=== PATIENT | male | born 1970 | race Caucasian/White ===

== ENCOUNTER 2018-07-22 11:03 | Inpatient (IN) | payer OTHER | END 2018-07-25 19:10 | disposition home or self-care (01) | LOC: JER 11:03 → JERBED 13:47 → J4W 16:16 ==

== ENCOUNTER 2018-10-07 11:17 | Emergency (ER) | payer OTHER ==
[2018-10-07 11:28] VITALS: TEMP 98.5; BMI 31.4
[2018-10-07] MEDS ORDERED: ASPIRIN 81 MG CHEWABLE TABLETS PO ONE (14:10)
[2018-10-07] MEDS ORDERED: KETOROLAC TROMETHAMINE 30 MG/1 ML VIAL IVPUSH ONE (14:12)
--- NOTE | 2018-10-07 14:32 | PDOC ---
History of Present Illness - General Chief Complaint: Chest Pain Stated Complaint: HEADACHE/ CHEST PAIN Time Seen by Provider: 10/07/18 13:57 History Source: Patient Exam Limitations: No Limitations - History of Present Illness Initial Comments: 10/07/18 14:00 48 y/o male presents to the ED with c/o midsternal chest pain since Sunday worsened with deep breathing and movement which he describes as sharp and intermittent. Patient states history of diabetes, hypertension, dyslipidemia and was recently admitted to the hospital for similar complaints which he states was started on medication for. Patient denies palpitations, shortness of breath, nausea, weakness, or radiation of pain. Presenting Symptoms: Chest Pain Timing/Duration: reports: intermittent Severity/Quality: reports: mild, sharp Location: reports: substernal Chest Pain Radiation: reports: no radiation Activities at Onset: reports: exertion Prior Chest Pain/Cardiac Workup: reports: Echocardiography, Stress Test Nitro Today/Relief: Yes: no nitro taken today Aspirin Received prior to arrival (Core Measure): Yes: 81 mg x 1 (at home), provided by ED (2 additional baby) Associated Symptoms: Yes: Chest Pain/pressure Past History - Travel Traveled outside of the country in the last 30 days: No Close contact w/someone who was outside of country & ill: No - Past Medical History Allergies/Adverse Reactions: Allergies Allergy/AdvReac Type Severity Reaction Status Date / Time No Known Allergies Allergy Verified 07/22/18 11:40 Home Medications: Ambulatory Orders Insulin Glargine,Hum.rec.anlog [Lantus] 55 unit SQ HS 07/22/18 Aspirin Coated [Ecotrin -] 81 mg PO DAILY #30 tablet.ec 07/23/18 Atorvastatin Ca [Lipitor] 20 mg PO HS #30 tablet 07/23/18 Losartan Potassium [Cozaar -] 25 mg PO DAILY #30 tablet 07/23/18 Insulin (Levemir) [Levemir Vial] 55 units SQ HS #2 units 07/25/18 Insulin Sliding Scale [Novolog Vial Sliding Scale -] 1 vial SQ ACHS #2 units Metoprolol Succinate [Toprol XL -] 25 mg PO DAILY #30 tab.sr.24h 07/25/18 metFORMIN HCL [Metformin ER Osmotic] 1,000 mg PO BID #60 tab.er.24 07/25/18 Anemia: No Asthma: Yes Cancer: No Cardiac Disorders: No CVA: No COPD: No CHF: No Dementia: No Diabetes: Yes GI Disorders: No Disorders: No HTN: Yes Hypercholesterolemia: Yes Liver Disease: Yes (Liver enlarged 2008) Seizures: No Thyroid Disease: No - Surgical History Abdominal Surgery: No Appendectomy: No Cardiac Surgery: No Cholecystectomy: No Lung Surgery: No Neurologic Surgery: No Orthopedic Surgery: No - Suicide/Smoking/Psychosocial Hx Smoking History: Never smoked Have you smoked in the past 12 months: Yes Number of Cigarettes Smoked Daily: 1 Information on smoking cessation initiated: No 'Breaking Loose' booklet given: 07/22/18 Hx Alcohol Use: No Drug/Substance Use Hx: No Substance Use Type: None Hx Substance Use Treatment: No Patient Lives Alone: Yes Lives with/in: lives alone Cardiac Specific PMH - Complaint Specific PMHX Pacemaker: No Review of Systems - Review of Systems Able to Perform ROS?: Yes Is the patient limited Korean proficient: Yes Constitutional: No: Symptoms Reported HEENTM: No: Symptoms Reported Respiratory: No: Symptoms reported Cardiac (ROS): Yes: Chest Pain ABD/GI: No: Symptoms Reported : No: Symptoms Reported Musculoskeletal: No: Symptoms Reported Integumentary: No: Symptoms Reported Neurological: No: Symptoms reported Endocrine: No: Symptoms Reported Hematologic/Lymphatic: No: Symptoms Reported *Physical Exam - Vital Signs Last Vital Signs Temp Pulse Resp BP Pulse Ox 98.5 F 62 18 128/68 98 10/07/18 11:26 10/07/18 17:49 10/07/18 17:49 10/07/18 17:49 10/07/18 17:49 - Physical Exam General Appearance: Yes: Nourished, Appropriately Dressed. No: Apparent Distress HEENT: negative: Pale Conjunctivae Neck: positive: Normal Thyroid Respiratory/Chest: positive: Chest Tender (upper midsternal bilaterally), Lungs Clear, Normal Breath Sounds. negative: Respiratory Distress, Accessory Muscle Use Cardiovascular: positive: Regular Rhythm, Regular Rate. negative: Murmur Gastrointestinal/Abdominal: positive: Soft Extremity: positive: Normal Inspection Integumentary: positive: Normal Color, Warm, Moist Neurologic: positive: Motor Strength 5/5 (ambulatory) Heart Score/ECG Review - ECG Intrepretation Rhythm: Regular Rhythm (rate 74normal sinus rhythm. Unchanged from previous noted July 2018) ED Treatment Course - LABORATORY CBC & Chemistry Diagram: 10/07/18 14:50 10/07/18 14:50 - ADDITIONAL ORDERS Additional order review: 10/07/18 14:50 RBC 5.22 MCV 88.1 MCHC 33.7 RDW 14.3 MPV 9.3 Neutrophils % 51.7 D Lymphocytes % 36.3 D Monocytes % 8.4 Eosinophils % 3.2 Basophils % 0.4 - RADIOLOGY Radiology Studies Ordered: Category Date Time Status CHEST X-RAY PORTABLE* [RAD] Stat Radiology 10/07/18 14:08 Completed - Medications Given in the ED: ED Medications Discontinued Medications Generic Name Dose Route Start Last Admin Trade Name Freq PRN Reason Stop Dose Admin Aspirin 162 mg 10/07/18 14:10 10/07/18 14:56 Asa - PO 10/07/18 14:11 162 mg ONCE ONE Administration Ketorolac Tromethamine 30 mg 10/07/18 14:12 10/07/18 14:56 Toradol Injection - IVPUSH 10/07/18 14:13 30 mg ONCE ONE Administration Medical Decision Making - Medical Decision Making 10/07/18 14:01 Upper mid chest pain since Sunday worsened with deep breathing and movement. Exam: Reproducible upper midsternal chest tenderness at the second to fourth rib bilaterally Plan: EKG, labs, chest x-ray aspirin and Toradol IV 10/07/18 17:25 Laboratory Tests 07/22/18 07/23/18 10/07/18 12:35 05:30 14:50 WBC Hgb Hct Absolute Neuts (auto) Sodium Potassium Chloride Carbon Dioxide Anion Gap BUN Creatinine Random Glucose Calcium Magnesium Total Bilirubin AST 27 21 ALT 79 H 62 H Troponin I < 0.02 Lipase 10/07/18 10/07/18 14:50 14:50 WBC 5.2 Hgb 15.5 Hct 46.0 Absolute Neuts (auto) 2.7 Sodium 141 Potassium 4.3 Chloride 106 Carbon Dioxide 30 Anion Gap 5 L BUN 13.2 Creatinine 1.1 Random Glucose 242 H Calcium 9.4 Magnesium 1.7 L Total Bilirubin 0.4 AST 46 H ALT 102 H Troponin I Lipase 133 Pt states feeling better with toradol.Chest x-ray shows no acute chest pathology. Patient recommended to follow up with Dr. Leyva referred marble ceiling installer from july's admission/workup. *DC/Admit/Observation/Transfer Diagnosis at time of Disposition: Chest pain - Discharge Dispostion Disposition: HOME - Referrals Referrals: Brian Masters MD [Staff Physician] - - Patient Instructions Printed Discharge Instructions: DI for Atypical Chest Pain Additional Instructions: At this time I do recommend follow-up with your PCP and marble ceiling installer. May take Motrin 600 mg every 8 hours for discomfort. - Post Discharge Activity
[2018-10-07] MEDS ORDERED: ASPIRIN 81 MG CHEWABLE TABLETS ONE (14:51)
[2018-10-07] MEDS ORDERED: KETOROLAC TROMETHAMINE 30 MG/1 ML VIAL ONE (14:52)
[2018-10-07 15:16] LABS: BASO % 0.4 % (0-2.0); EOS % 3.2 % (0-4.5); HEMOGLOBIN 15.5 GM/dL (11.7-16.9); LYMPH % 36.3 % (8-40); MCH 29.7 pg (25.7-33.7); MCHC 33.7 g/dl (32.0-35.9); MEAN CELL VOLUME 88.1 fl (80-96); MEAN PLT VOLUME 9.3 fl (7.5-11.1); MONO % 8.4 % (3.8-10.2); NEUT % 51.7 % (42.8-82.8); PLATELET COUNT 171 K/MM3 (134-434); RBC 5.22 M/mm3 (4.00-5.60); RDW 14.3 % (11.9-15.9); WHITE BLOOD COUNT 5.2 K/mm3 (4.0-10.0)
--- NOTE | 2018-10-07 15:24 | EKG ---
Test Reason : Blood Pressure : / mmHG Vent. Rate : 074 BPM Atrial Rate : 074 BPM P-R Int : 142 ms QRS Dur : 104 ms QT Int : 386 ms P-R-T Axes : 033 -53 003 degrees QTc Int : 428 ms NORMAL SINUS RHYTHM INCOMPLETE RIGHT BUNDLE BRANCH BLOCK LEFT ANTERIOR FASCICULAR BLOCK ANTERIOR INFARCT (CITED ON OR BEFORE 22-JUL-2018) ABNORMAL ECG WHEN COMPARED WITH ECG OF 22-JUL-2018 14:19, NO SIGNIFICANT CHANGE WAS FOUND Confirmed by YAYA STARR MD ([id number]) on 10/07/2018 3:24:12 PM Referred By: Confirmed By:YAYA STARR MD
[2018-10-07 15:38] LABS: ALBUMIN 3.5 g/dl (3.4-5.0); BILIRUBIN,TOTAL 0.4 mg/dL (0.2-1); BLOOD UREA NITROGEN 13.2 mg/dL (7-18); CALCIUM 9.4 mg/dL (8.5-10.1); CREATININE 1.1 mg/dL (0.55-1.3); MAGNESIUM 1.7 mg/dL (1.8-2.4); POTASSIUM 4.3 mmol/L (3.5-5.1); TOT PROT 7.7 g/dl (6.4-8.2)
[2018-10-07 17:50] VITALS: BP 128/68; PULSE 62
== END 2018-10-07 17:50 | disposition home or self-care (01) ==
LOC: JER 11:17
PROC: 3E0333Z Introduction of Anti-inflammatory into Peripheral Vein, Percutaneous Approach (ICD-10-PCS; principal; 2018-10-07)
DX: R07.9 Chest pain, unspecified (principal); I10 Essential (primary) hypertension; E11.9 Type 2 diabetes mellitus without complications; Z79.4 Long term (current) use of insulin; E78.00 Pure hypercholesterolemia, unspecified
CPT/HCPCS: 36415; 71045-TC-FY; 80053; 82550; 83690; 83735; 84484; 85025; 93005; 93010; 96374; 99282-25

== ENCOUNTER 2019-04-07 09:02 | Inpatient (IN) | payer OTHER ==
--- NOTE | 2019-04-07 09:49 | PDOC ---
History of Present Illness - General Chief Complaint: Chest Pain Stated Complaint: CHEST PAIN Time Seen by Provider: 04/07/19 09:45 - History of Present Illness Initial Comments: Dillan Alicia is a 49yo man with a PMH of CAD s/p stent (2019), MR, HTN, diabetes , and asthma who presents with chest pain since last night. He states that the pain started around 10pm and feels like a severe tightness. He had associated sweating and fell to his knees when the pain began, but the sweating has since resolved. He denies any lightheadedness, nausea/vomiting, pain radiation, SOB, or other associated symptoms. He is unable to say whether he has had similar pain before. He currently reports continued chest tightness as well as left knee pain with redness from the fall yesterday. Past History - Past Medical History Allergies/Adverse Reactions: Allergies Allergy/AdvReac Type Severity Reaction Status Date / Time No Known Allergies Allergy Verified 04/07/19 09:13 Home Medications: Ambulatory Orders Insulin Glargine,Hum.rec.anlog [Lantus] 55 unit SQ HS 07/22/18 Aspirin Coated [Ecotrin -] 81 mg PO DAILY #30 tablet.ec 07/23/18 Atorvastatin Ca [Lipitor] 20 mg PO HS #30 tablet 07/23/18 Losartan Potassium [Cozaar -] 25 mg PO DAILY #30 tablet 07/23/18 Insulin (Levemir) [Levemir Vial] 55 units SQ HS #2 units 07/25/18 Insulin Sliding Scale [Novolog Vial Sliding Scale -] 1 vial SQ ACHS #2 units Metoprolol Succinate [Toprol XL -] 25 mg PO DAILY #30 tab.sr.24h 07/25/18 metFORMIN HCL [Metformin ER Osmotic] 1,000 mg PO BID #60 tab.er.24 07/25/18 Clindamycin [Cleocin -] 450 mg PO TID 10 Days #90 capsule 04/04/19 Anemia: No Asthma: Yes Cancer: No Cardiac Disorders: No CVA: No COPD: No CHF: No Dementia: No Diabetes: Yes GI Disorders: No Disorders: No HTN: Yes Hypercholesterolemia: Yes Liver Disease: Yes (Liver enlarged 2008) Seizures: No Thyroid Disease: No - Surgical History Abdominal Surgery: No Appendectomy: No Cardiac Surgery: No Cholecystectomy: No Lung Surgery: No Neurologic Surgery: No Orthopedic Surgery: No - Immunization History Immunization Up to Date: Yes - Psycho Social/Smoking Cessation Hx Smoking History: Never smoked Have you smoked in the past 12 months: No Number of Cigarettes Smoked Daily: 1 Information on smoking cessation initiated: No 'Breaking Loose' booklet given: 07/22/18 Hx Alcohol Use: No Drug/Substance Use Hx: No Substance Use Type: None Hx Substance Use Treatment: No Review of Systems - Review of Systems Comments:: General: No fevers, no chills, no weight or appetite change, no malaise HEENT: No changes in vision, no changes in hearing, no congestion, no sore throat CV: + chest pain, no palpitations, no LE edema Pulm: No SOB, no cough, no wheezing GI: No nausea or vomiting, no change in bowel habits, no melena : No frequency, no urgency, no dysuria Musc: No back pain, no joint swelling, no recent injury Skin: No rash, no lesions, no erythema Endo: No excessive thirst, no heat/cold intolerance Heme: No unusual bruising or bleeding, no swollen glands Neuro: No syncope, no numbness/tingling, no focal weakness Vasc: No claudication Psych: No recent change in mood, no SI or HI *Physical Exam - Vital Signs Last Vital Signs Temp Pulse Resp BP Pulse Ox 98 F 104 H 18 129/94 97 04/07/19 09:10 04/07/19 09:10 04/07/19 09:10 04/07/19 09:10 04/07/19 09:10 - Physical Exam General: Comfortable, no acute distress HEENT: Atraumatic, PERRL, EOMI, MMM, voice normal, normal neck ROM Cards: RRR, no murmur appreciated, no reproducible tenderness Pulm: Comfortable on room air, clear to auscultation bilaterally Abd: Soft, nontender, nondistended Ext: Atraumatic. No LE edema. ROM intact. WWP Skin: Normal color, no rashes or lesions Neuro: A&Ox3, CN grossly intact, normal speech, motor/sensory grossly intact and symmetric Psych: Mood appropriate to situation ED Treatment Course - LABORATORY CBC & Chemistry Diagram: 04/07/19 10:30 04/07/19 10:30 Medical Decision Making - Medical Decision Making 04/07/19 09:49 Dillan Alicia is a 49yo man with a PMH of CAD s/p stent (2019), MR, HTN, diabetes , and asthma who presents with chest tightness since last night. He reports associated sweating and a fall from standing at the onset of pain. - Chest tightness concerning for ACS given significant comorbidities and prior stent - CBC, CMP, trop, EKG, CXR - ASA ordered 04/07/19 12:27 - Labs reviewed. No concerning abnormalities, trop negative - EKG w/ NSR, HR 01, left axis. Slightly prolonged QRS at 108. Incomplete RBBB and left fascicular blocks. No significant change from prior. - CXR without acute findings - Given significant history, will admit for chest pain workup. Call placed to Dr Masters, waiting for return call. 04/07/19 13:42 - Knee xray with soft tissue swelling, no other significant abnormalities - Acetaminophen for knee pain Discussed with Dr Maxwell Mcnamara PGY2 Discharge - Discharge Information Problems reviewed: Yes Clinical Impression/Diagnosis: Chest pain Qualifiers: Chest pain type: unspecified Qualified Code(s): R07.9 - Chest pain, unspecified - Admission Yes - Follow up/Referral - Patient Discharge Instructions - Post Discharge Activity
[2019-04-07] MEDS ORDERED: ASPIRIN 325 MG TABLET PO ONE (09:57)
[2019-04-07 10:51] LABS: BASO % 0.6 % (0-2.0); EOS % 1.9 % (0-4.5); HEMATOCRIT 46.9 % (35.4-49); HEMOGLOBIN 15.6 GM/dL (11.7-16.9); LYMPH % 25.8 % (8-40); MCH 29.3 pg (25.7-33.7); MCHC 33.3 g/dl (32.0-35.9); MEAN CELL VOLUME 87.9 fl (80-96); MEAN PLT VOLUME 9.7 fl (7.5-11.1); MONO % 9.9 % (3.8-10.2); NEUT % 61.8 % (42.8-82.8); PLATELET COUNT 184 K/MM3 (134-434); RBC 5.33 M/mm3 (4.00-5.60); RDW 13.7 % (11.9-15.9); WHITE BLOOD COUNT 7.2 K/mm3 (4.0-10.0)
[2019-04-07 11:27] LABS: ALBUMIN 3.2 g/dl (3.4-5.0); ALK PHOS 126 U/L (45-117); ANION GAP 8 MMOL/L (8-16); BILIRUBIN,TOTAL 0.6 mg/dL (0.2-1); BLOOD UREA NITROGEN 12.8 mg/dL (7-18); CALCIUM 9.4 mg/dL (8.5-10.1); CHLORIDE 100 mmol/L (98-107); CO2 25 mmol/L (21-32); CREATININE 1.1 mg/dL (0.55-1.3); GLUCOSE,RANDOM 344 mg/dL (74-106); POTASSIUM 3.9 mmol/L (3.5-5.1); SGOT/AST 19 U/L (15-37); SGPT/ALT 61 U/L (13-61); SODIUM 134 mmol/L (136-145); TOT PROT 7.7 g/dl (6.4-8.2)
[2019-04-07] MEDS ORDERED: ASPIRIN 325 MG ENTERIC COATED TABLET (FP) ONE (11:57)
--- NOTE | 2019-04-07 12:16 | EKG ---
Test Reason : Blood Pressure : / mmHG Vent. Rate : 091 BPM Atrial Rate : 091 BPM P-R Int : 150 ms QRS Dur : 108 ms QT Int : 360 ms P-R-T Axes : 040 -58 020 degrees QTc Int : 442 ms NORMAL SINUS RHYTHM LEFT ANTERIOR FASCICULAR BLOCK CANNOT RULE OUT INFERIOR INFARCT (MASKED BY FASCICULAR BLOCK?) , AGE UNDETERMINED Consider ANTERIOR INFARCT (CITED ON OR BEFORE 22-JUL-2018) ABNORMAL ECG WHEN COMPARED WITH ECG OF 07-OCT-2018 11:19, NO SIGNIFICANT CHANGE WAS FOUND Confirmed by Mary Ann Elam ([id number]) on 04/07/2019 12:16:19 PM Referred By: Confirmed By:Mary Ann Elam
--- NOTE | 2019-04-07 12:30 | PDOC ---
Documentation entered by Mariano Loo SCRIBE, acting as scribe for Nemo Arreola DO. Nemo Arreola DO: This documentation has been prepared by the Cinda rodriguez Nirvannie, SCRIBE, under my direction and personally reviewed by me in its entirety. I confirm that the documentation accurately reflects all work, treatment, procedures, and medical decision making performed by me. Attending Attestation - Resident Resident Name: NaimaRadha - ED Attending Attestation I have performed the following: I have examined & evaluated the patient, The case was reviewed & discussed with the resident, I agree w/resident's findings & plan, Exceptions are as noted - HPI HPI: 04/07/19 11:49 The patient is a 49 year old male, with a significant past medical history of CAD s/p cardiac stenting, mild MR, HTN, IDDM, and asthma, who presents to the emergency department with 2 days of chest pain. Patient describes his chest pain as a midsternal tightness causing him to fall to his knees yesterday. He notes his symptoms are persistent, prompting his arrival to the ED. Patient is currently on Clindamycin for scrotal infection (04/04). Patient is a poor historian. He denies any recent fevers, chills, headache or dizziness. He denies any recent nausea, vomit, diarrhea or constipation. He denies any recent dysuria, frequency, urgency or hematuria. Allergies: NKDA - Physicial Exam PE: 04/07/19 11:49 Constitutional: Awake, alert, oriented. No acute distress. Head: Normocephalic. Atraumatic Eyes: PERRL. EOMI. Conjunctivae are not pale. ENT: Mucous membranes are moist and intact. Posterior pharynx without exudates or erythema. Uvula midline. Neck: Supple. Full ROM. No lymphadenopathy. Cardiovascular: Regular rate. Regular rhythm. S1, S2 regular. Distal pulses are 2+ and symmetric. Pulmonary/Chest: No evidence of respiratory distress. Clear to auscultation bilaterally No wheezing, rales or rhonchi. Abdominal: Soft and non-distended. There is no tenderness. No rebound, guarding or rigidity. No organomegaly. No palpable masses. Good bowel sounds. Back: No CVA tenderness. Musculoskeletal: +Small abrasions to the bilateral knees. No edema. No cyanosis. No clubbing. Full range of motion in all extremities. No calf tenderness. Radial/pedal pulses are intact and 2+ bilaterally Skin: Skin is warm and dry. No petechiae. No purpura. Neurological: Alert and oriented to person, place, and time. Cranial nerves II -XII are grossly intact. Normal speech. Strength is grossly symmetric. No sensory deficits. Psychiatric: Good eye contact. Normal interaction, affect and behavior. - Medical Decision Making 04/07/19 12:26 a/p: 49yo male with hx of cad, htn, hld, dm with substernal cp since yesterday -pt states last night he was diaphoretic with the pain -states he fell and banged his knee last night -states still with cp today -unsure who is doc or cards are -states pain similar to a year ago when he had cp -will send labs, trop, ekg, cxr -will need obs for cp -will give asa -will monitor and reassess 04/07/19 12:30 trop neg will call dr. callahan for obs placement 04/07/19 12:47 knee xray shows arthritis cxr clear 04/07/19 12:58 resident idscussed the case with dr. callahan who accepts pt to service Heart Score/ECG Review - ECG Intrepretation Comment:: 04/07/19 12:28 sinus at 91, q waves inferior leads and q waves anteroseptally that are age indeterminate, LAFB, incomplete RBBB, poor r wave progression, ekg is unchanged from prior
[2019-04-07] MEDS ORDERED: ACETAMINOPHEN 1000 MG/100 ML VIAL (NON FORMULARY) IVPB ONE (12:47)
[2019-04-07] MEDS ORDERED: ACETAMINOPHEN INJECTION 100 ML IVPB ONE (13:55)
--- NOTE | 2019-04-07 18:48 | HP ---
Admitting History and Physical - Primary Care Physician PCP: Brian Masters - Admission History of Present Illness: 49yo man with a PMH of CAD s/p stent (2019), MR, HTN, diabetes, and asthma who presents with chest pain since last night. He states that the pain started around 10pm and feels like a severe tightness. He had associated sweating and fell to his knees when the pain began, but the sweating has since resolved. He denies any lightheadedness, nausea/vomiting, pain radiation, SOB, or other associated symptoms. He is unable to say whether he has had similar pain before. He currently reports continued chest tightness as well as left knee pain with redness from the fall yesterday. - Past Medical History Cardiovascular: Yes: HTN Pulmonary: Yes: Asthma Endocrine: Yes: Diabetes Mellitus - Past Surgical History Past Surgical History: Yes: None - Smoking History Smoking history: Never smoked Have you smoked in the past 12 months: No Aproximately how many cigarettes per day: 1 - Alcohol/Substance Use Hx Alcohol Use: No Home Medications - Allergies Allergies/Adverse Reactions: Allergies Allergy/AdvReac Type Severity Reaction Status Date / Time No Known Allergies Allergy Verified 04/07/19 09:13 - Home Medications Home Medications: Ambulatory Orders Aspirin Coated [Ecotrin -] 81 mg PO DAILY #30 tablet.ec 07/23/18 Atorvastatin Ca [Lipitor] 20 mg PO HS #30 tablet 07/23/18 Losartan Potassium [Cozaar -] 25 mg PO DAILY #30 tablet 07/23/18 Insulin (Levemir) [Levemir Vial] 55 units SQ HS #2 units 07/25/18 Insulin Sliding Scale [Novolog Vial Sliding Scale -] 1 vial SQ ACHS #2 units Metoprolol Succinate [Toprol XL -] 25 mg PO DAILY #30 tab.sr.24h 07/25/18 metFORMIN HCL [Metformin ER Osmotic] 1,000 mg PO BID #60 tab.er.24 07/25/18 Physical Examination Vital Signs: Vital Signs Temperature 98 F 04/07/19 09:10 Pulse Rate 104 H 04/07/19 09:10 Respiratory Rate 18 04/07/19 09:10 Blood Pressure 129/94 04/07/19 09:10 O2 Sat by Pulse Oximetry (%) 97 04/07/19 09:10 Constitutional: Yes: No Distress HENT: Yes: Atraumatic Neck: Yes: Supple Cardiovascular: Yes: Regular Rate and Rhythm Respiratory: Yes: CTA Bilaterally Gastrointestinal: Yes: Normal Bowel Sounds Extremities: Yes: Other (L knee has erythema/warm) Edema: No Peripheral Pulses WNL: Yes Neurological: Yes: Alert, Confusion Labs: CBC, BMP 04/07/19 10:30 04/07/19 10:30 Imaging - Results X-ray: Report Reviewed Problem List - Problems (1) Chest pain Assessment/Plan: tele monitoring fu cardiac profile cardio consult Code(s): R07.9 - CHEST PAIN, UNSPECIFIED Qualifiers: Chest pain type: unspecified Qualified Code(s): R07.9 - Chest pain, unspecified (2) Hypercholesterolemia Assessment/Plan: on meds Code(s): E78.00 - PURE HYPERCHOLESTEROLEMIA, UNSPECIFIED (3) Hypertension Assessment/Plan: on meds monitor Code(s): I10 - ESSENTIAL (PRIMARY) HYPERTENSION Qualifiers: (4) Type 2 diabetes mellitus Assessment/Plan: insulin bgms Code(s): E11.9 - TYPE 2 DIABETES MELLITUS WITHOUT COMPLICATIONS Assessment/Plan Laboratory Tests 04/07/19 04/07/19 10:30 10:30 WBC 7.2 RBC 5.33 Hgb 15.6 Hct 46.9 MCV 87.9 MCH 29.3 MCHC 33.3 RDW 13.7 Plt Count 184 MPV 9.7 Absolute Neuts (auto) 4.4 Neutrophils % 61.8 Lymphocytes % 25.8 D Monocytes % 9.9 Eosinophils % 1.9 Basophils % 0.6 Nucleated RBC % 0 Sodium 134 L Potassium 3.9 Chloride 100 Carbon Dioxide 25 Anion Gap 8 BUN 12.8 Creatinine 1.1 Est GFR (CKD-EPI)AfAm 91.52 Est GFR (CKD-EPI)NonAf 78.96 Random Glucose 344 H Calcium 9.4 Total Bilirubin 0.6 AST 19 ALT 61 Alkaline Phosphatase 126 H Creatine Kinase 59 Troponin I < 0.02 Total Protein 7.7 Albumin 3.2 L Active Medications Generic Name Dose Route Start Last Admin Trade Name Freq PRN Reason Stop Dose Admin Aspirin 81 mg 04/08/19 10:00 Ecotrin - PO DAILY [place] Atorvastatin Calcium 20 mg 04/07/19 22:00 Lipitor - PO HS [place] Heparin Sodium (Porcine) 5,000 unit 04/07/19 22:00 Heparin - SQ BID [facility] Insulin Aspart 1 vial 04/07/19 22:00 Novolog Vial Sliding Scale - SQ ACHS [facility] Protocol Insulin Detemir 55 units 04/07/19 22:00 Levemir Vial SQ HS [facility] Losartan Potassium 25 mg 04/08/19 10:00 Cozaar - PO DAILY [facility] Metoprolol Succinate 25 mg 04/08/19 10:00 Toprol Xl - PO DAILY [facility] Non-Formulary Medication 1,000 mg 04/07/19 22:00 Metformin Hcl [Metformin Er Osmotic] PO BID [place]
[2019-04-07] MEDS: HEPARIN NA (PORCINE) 5,000 UNITS/ML 1ML VIAL SQ SCH (22:47)
[2019-04-07] MEDS: INSULIN (LEVEMIR) 100 UNITS/ML UNITS SQ SCH (22:47)
[2019-04-07] MEDS: ATORVASTATIN CA 20 MG TABLET (FP) PO SCH (22:47)
[2019-04-07] MEDS: INSULIN SLIDING SCALE (NOVOLOG) 1 VIAL SQ SCH (22:48)
[2019-04-07] MEDS: ACETAMINOPHEN 325 MG TABLET (FP) PO PRN (22:52)
[2019-04-08 00:20] VITALS: BMI 29.2
[2019-04-08] MEDS: ACETAMINOPHEN 325 MG TABLET (FP) PO PRN (06:09)
[2019-04-08] MEDS: INSULIN SLIDING SCALE (NOVOLOG) 1 VIAL SQ SCH ×4 (06:10→22:25)
[2019-04-08] MEDS ORDERED: INSULIN SLIDING SCALE (NOVOLOG) 1 VIAL SQ ONE (07:05)
[2019-04-08] MEDS: HEPARIN NA (PORCINE) 5,000 UNITS/ML 1ML VIAL SQ SCH ×2 (09:33→22:22)
[2019-04-08] MEDS: ASPIRIN COATED 81 MG TABLET.EC PO SCH (09:33)
[2019-04-08] MEDS: LOSARTAN POTASSIUM 25 MG TABLET PO SCH (09:33)
[2019-04-08] MEDS ORDERED: metoPROLOL SUCCINATE 25 MG TAB.SR.24H (FP) PO SCH (10:00)
--- NOTE | 2019-04-08 11:02 | CON.CARD ---
Consult Consult Specialty:: Cardiology Referred by:: Dr. Masters Reason for Consultation:: Cardiac evaluation - History of Present Illness Chief Complaint: Chest pain History of Present Illness: Patient is a 49 year old male with underlying history of CAD (but denies PCI/ stent), HTN, hypercholesterolemia and DM who presented with mid sternal chest tightness which started on Sunday. He also had a mechanical fall onto his left knee where he complains of swelling and pain. He complains of intermittent shortnsss of breath. He denies palpitations. He denies paroxysmal nocturnal dyspnea or orthopnea. He denies fever or chills. He denies nausea, vomiting, diarrhea or abdominal pain. He denies headache or lightheadedness. He was last seen in the hospital in July 2018 and had nuclear MPI which revealed large inferior and septal ischemia and LVEF 79%. He states that he had a cardiac cath at [facility], but did not receive a stent. - History Source History Provided By: Patient, Medical Record Limitations to Obtaining History: No Limitations - Past Medical History Cardio/Vascular: Yes: CAD, HTN, Hyperlipdemia Pulmonary: Yes: Asthma Endocrine: Yes: Diabetes Mellitus - Past Surgical History Past Surgical History: Yes: None - Alcohol/Substance Use Hx Alcohol Use: No History of Substance Use: reports: None - Smoking History Smoking history: Never smoked Have you smoked in the past 12 months: No Aproximately how many cigarettes per day: 1 Home Medications - Allergies Allergies/Adverse Reactions: Allergies Allergy/AdvReac Type Severity Reaction Status Date / Time No Known Allergies Allergy Verified 04/07/19 09:13 - Home Medications Home Medications: Ambulatory Orders Aspirin Coated [Ecotrin -] 81 mg PO DAILY #30 tablet.ec 07/23/18 Atorvastatin Ca [Lipitor] 20 mg PO HS #30 tablet 07/23/18 Losartan Potassium [Cozaar -] 25 mg PO DAILY #30 tablet 07/23/18 Insulin (Levemir) [Levemir Vial] 55 units SQ HS #2 units 07/25/18 Insulin Sliding Scale [Novolog Vial Sliding Scale -] 1 vial SQ ACHS #2 units Metoprolol Succinate [Toprol XL -] 25 mg PO DAILY #30 tab.sr.24h 07/25/18 metFORMIN HCL [Metformin ER Osmotic] 1,000 mg PO BID #60 tab.er.24 07/25/18 Family Medical History Family Hx Coronary Artery Disease: Grandfather (maternal) Review of Systems - Review of Systems Constitutional: denies: Chills, Fever Cardiovascular: reports: Chest Pain, Shortness of Breath. denies: Palpitations Respiratory: reports: SOB. denies: Cough, Hemoptysis, Orthopnea, PND Gastrointestinal: denies: Abdominal Pain, Constipation, Diarrhea, Melena, Nausea , Rectal Bleeding, Vomiting Genitourinary: denies: Dysuria, Hematuria Musculoskeletal: denies: Back Pain, Joint Pain Neurological: denies: Dizziness, Headache, Seizure, Syncope Vital Signs: Vital Signs Temperature 98.8 F 04/08/19 08:53 Pulse Rate 88 04/08/19 08:53 Respiratory Rate 18 04/08/19 08:53 Blood Pressure 140/104 H 04/08/19 08:53 O2 Sat by Pulse Oximetry (%) 98 04/07/19 23:23 HENT: Yes: Atraumatic Neck: Yes: Supple Respiratory: Yes: Diminished Gastrointestinal: Yes: Normal Bowel Sounds, Soft. No: Tenderness Cardiovascular: Yes: Regular Rate and Rhythm JVD: No PMI: Non-Displaced Heart Sounds: Yes: S1, S2. No: Gallop Edema: No - Other Data Labs, Other Data: CBC, BMP 04/07/19 10:30 04/07/19 10:30 Troponin, BNP 04/07/19 04/07/19 04/08/19 10:30 21:50 05:33 Troponin I < 0.02 < 0.02 < 0.02 Laboratory Results - last 24 hr 04/07/19 04/07/19 04/07/19 10:30 19:33 21:50 Sodium 134 L Potassium 3.9 Chloride 100 Carbon Dioxide 25 Anion Gap 8 BUN 12.8 Creatinine 1.1 Est GFR (CKD-EPI)AfAm 91.52 Est GFR (CKD-EPI)NonAf 78.96 POC Glucometer 324 Random Glucose 344 H Calcium 9.4 Total Bilirubin 0.6 AST 19 ALT 61 Alkaline Phosphatase 126 H Creatine Kinase 59 31 Troponin I < 0.02 < 0.02 Total Protein 7.7 Albumin 3.2 L 04/07/19 04/08/19 04/08/19 21:58 05:33 06:04 Sodium Potassium Chloride Carbon Dioxide Anion Gap BUN Creatinine Est GFR (CKD-EPI)AfAm Est GFR (CKD-EPI)NonAf POC Glucometer 290 266 Random Glucose Calcium Total Bilirubin AST ALT Alkaline Phosphatase Creatine Kinase 49 Troponin I < 0.02 Total Protein Albumin Sinus rhythm with poor R progression, ?anterior infarct Echo: Pending Imaging - Results Chest X-ray: Report Reviewed (No acute pathology) X-ray: Report Reviewed (Knee Xray) EKG: Report Reviewed Problem List - Problems (1) Chest pain Code(s): R07.9 - CHEST PAIN, UNSPECIFIED Qualifiers: Chest pain type: unspecified Qualified Code(s): R07.9 - Chest pain, unspecified (2) Asthma Code(s): J45.909 - UNSPECIFIED ASTHMA, UNCOMPLICATED Qualifiers: Asthma severity: mild Asthma persistence: unspecified Asthma complication type: unspecified Qualified Code(s): J45.909 - Unspecified asthma , uncomplicated (3) Hypercholesterolemia Code(s): E78.00 - PURE HYPERCHOLESTEROLEMIA, UNSPECIFIED (4) Hypertension Code(s): I10 - ESSENTIAL (PRIMARY) HYPERTENSION Qualifiers: (5) Type 2 diabetes mellitus Code(s): E11.9 - TYPE 2 DIABETES MELLITUS WITHOUT COMPLICATIONS Assessment/Plan 1. Chest pain syndrome with underlying CAD and abnormal ECG 2. HTN 3. Hypercholesterolemia 4. DM PLAN: 1. Troponins negative 2. Echocardiography to assess LV/RV and valvular function 3. Last nuclear MPI in July 2018 ([facility]) revealed large inferior and septal ischemia with LVEF 79%. Patient was seen by our service and was recommended medical therapy with recommendation for cardiac cath if remained symptomatic. Patient had a cath as outpatient at [facility] as per patient. 4. Increase Toprol XL to 50 mg QD. Continue Losartan 25 mg QD 5. Consider Ranexa 500 mg BID 6. Continue Atorvastatin 20 mg QHS 7. ASA 81 mg QD 8. Obtain medical records from [facility] (Cath report) Further plans are to follow Anselmo Leyva MD
--- NOTE | 2019-04-08 13:43 | ECHO ---
Name: GRICELDA ROCHE Exam:Adult Echocardiogram Study Date: 04/08/2019 12:49 PM Age: 49 yrs Reason For Study: CP Height: 65 in Weight: 176 lb BSA: 1.9 m2 MMode/2D Measurements & Calculations IVSd: 1.2 cm Ao root diam: 3.0 cm LVIDd: 4.2 cm LA dimension: 3.3 cm LVIDs: 2.9 cm ACS: 1.9 cm LVPWd: 1.2 cm EDV(Teich): 77.7 ml EPSS: 0.81 cm ESV(Teich): 32.8 ml LVOT diam: 2.0 cm LVLd ap4: 7.8 cm EDV(MOD-sp4): 102.0 ml LVLs ap4: 6.6 cm ESV(MOD-sp4): 52.0 ml SV(MOD-sp4): 50.0 ml LAV (MOD-bp): 27.0 ml TAPSE: 1.7 cm RV S Luis: 14.2 cm/sec Doppler Measurements & Calculations MV E max luis: 60.4 cm/sec Ao V2 max: 108.6 cm/sec MV A max luis: 74.5 cm/sec Ao max P.7 mmHg MV E/A: 0.81 Ao V2 mean: 78.9 cm/sec MV dec time: 0.18 sec Ao mean P.8 mmHg Ao V2 VTI: 16.4 cm JATINDER(I,D): 2.2 cm2 JATINDER(V,D): 2.3 cm2 LV V1 max P.8 mmHg SV(LVOT): 36.1 ml LV V1 mean P.4 mmHg LV V1 max: 83.9 cm/sec LV V1 mean: 53.7 cm/sec LV V1 VTI: 11.9 cm TR max luis: 157.5 cm/sec PA V2 max: 84.2 cm/sec TR max P.9 mmHg PA max P.8 mmHg PA acc slope: 428.1 cm/sec2 PA acc time: 0.13 sec Med Peak E' Luis: 5.8 cm/sec PA pr(Accel): 20.4 mmHg Med E/e': 10.5 Lat Peak E' Luis: 9.5 cm/sec Lat E/e': 6.4 Procedure A complete two-dimensional transthoracic echocardiogram was performed (2D, M-mode, Doppler and color flow Doppler). Left Ventricle The left ventricular size, thickness and function are normal. Ejection Fraction = 60%. Diastolic dysf unction, Grade II (pseudonormalization pattern). The left ventricular wall motion is normal. Right Ventricle The right ventricle is normal in size and function. Atria Normal left and right atrial size and function. Mitral Valve The mitral valve is normal in structure and function. There is trace mitral regurgitation. Tricuspid Valve The tricuspid valve is normal in structure and function. Right ventricular systolic pressure is 15 mm hg. Assuming the RA pressure is 5 mmHg. There is trace tricuspid regurgitation. Aortic Valve The aortic valve is normal in structure and function. Pulmonic Valve The pulmonic valve is normal in structure and function. Great Vessels The aortic root is normal size. Pericardium/Pleura There is no pericardial effusion. There is no pleural effusion. Interpretation Summary This degree of valvular regurgitation is within normal limits. The left ventricular size, thickness a nd function are normal Ejection Fraction = 60%. MD Jared Beaver 04/08/2019 01:43 PM
--- NOTE | 2019-04-08 18:27 | DS ---
Physical Examination Vital Signs: Vital Signs Temperature 98.0 F 04/08/19 18:00 Pulse Rate 83 04/08/19 18:00 Respiratory Rate 20 04/08/19 18:00 Blood Pressure 126/74 04/08/19 18:00 O2 Sat by Pulse Oximetry (%) 95 04/08/19 09:00 Labs: CBC, BMP 04/07/19 10:30 04/07/19 10:30 Discharge Summary Problems reviewed: Yes Reason For Visit: CHEST PAIN Current Active Problems Chest pain (Acute) - Instructions Referrals: Anselmo Leyva MD [Staff Physician] - - Home Medications Comprehensive Discharge Medication List: Ambulatory Orders Aspirin Coated [Ecotrin -] 81 mg PO DAILY #30 tablet.ec 07/23/18 Atorvastatin Ca [Lipitor] 20 mg PO HS #30 tablet 07/23/18 Losartan Potassium [Cozaar -] 25 mg PO DAILY #30 tablet 07/23/18 Insulin (Levemir) [Levemir Vial] 55 units SQ HS #2 units 07/25/18 Insulin Sliding Scale [Novolog Vial Sliding Scale -] 1 vial SQ ACHS #2 units metFORMIN HCL [Metformin ER Osmotic] 1,000 mg PO BID #60 tab.er.24 07/25/18 Metoprolol Succinate [Toprol XL -] 50 mg PO DAILY #30 tab.sr.24h 04/08/19
--- NOTE | 2019-04-08 20:27 | PN ---
Progress Note, Physician - Current Medication List Current Medications: Active Medications Acetaminophen (Tylenol -) 650 mg PO Q6H PRN PRN Reason: FEVER Last Admin: 04/08/19 06:09 Dose: 650 mg Aspirin (Ecotrin -) 81 mg PO DAILY [facility] Last Admin: 04/08/19 09:33 Dose: 81 mg Atorvastatin Calcium (Lipitor -) 20 mg PO HS [facility] Last Admin: 04/07/19 22:47 Dose: 20 mg Heparin Sodium (Porcine) (Heparin -) 5,000 unit SQ BID [facility] Last Admin: 04/08/19 09:33 Dose: 5,000 unit Insulin Aspart (Novolog Vial Sliding Scale -) 1 vial SQ [facility]; Protocol Last Admin: 04/08/19 16:43 Dose: 8 units Insulin Detemir (Levemir Vial) 55 units SQ HS [facility] Last Admin: 04/07/19 22:47 Dose: 55 units Losartan Potassium (Cozaar -) 25 mg PO DAILY [facility] Last Admin: 04/08/19 09:33 Dose: 25 mg Metformin HCl (Glucophage Xr -) 1,000 mg PO BIDAC [facility] Last Admin: 04/08/19 16:42 Dose: 1,000 mg Metoprolol Succinate (Toprol Xl -) 50 mg PO DAILY [facility] Last Admin: 04/08/19 14:16 Dose: 50 mg - Objective Vital Signs: Vital Signs Temperature 98.0 F 04/08/19 18:00 Pulse Rate 83 04/08/19 18:00 Respiratory Rate 20 04/08/19 18:00 Blood Pressure 126/74 04/08/19 18:00 O2 Sat by Pulse Oximetry (%) 95 04/08/19 09:00 Constitutional: Yes: No Distress HENT: Yes: Atraumatic Neck: Yes: Supple Cardiovascular: Yes: Regular Rate and Rhythm Respiratory: Yes: CTA Bilaterally Gastrointestinal: Yes: Normal Bowel Sounds Extremities: Yes: Other (left knee warm /erythematus) Neurological: Yes: Alert, Oriented Labs: CBC, BMP 04/07/19 10:30 04/07/19 10:30 Problem List - Problems (1) Chest pain Code(s): R07.9 - CHEST PAIN, UNSPECIFIED Qualifiers: Chest pain type: unspecified Qualified Code(s): R07.9 - Chest pain, unspecified (2) Hypercholesterolemia Assessment/Plan: on meds Code(s): E78.00 - PURE HYPERCHOLESTEROLEMIA, UNSPECIFIED (3) Hypertension Assessment/Plan: on meds monitor Code(s): I10 - ESSENTIAL (PRIMARY) HYPERTENSION Qualifiers: Hypertension type: essential hypertension Qualified Code(s): I10 - Essential (primary) hypertension (4) Type 2 diabetes mellitus Assessment/Plan: insulin bgms Code(s): E11.9 - TYPE 2 DIABETES MELLITUS WITHOUT COMPLICATIONS Qualifiers: Diabetes mellitus fpc insulin use: without ferry terminal agent use (5) Infection of knee Assessment/Plan: iv abx id/ortho consult Code(s): M00.9 - PYOGENIC ARTHRITIS, UNSPECIFIED Assessment/Plan will get ortho for L knee start iv abx
[2019-04-08] MEDS ORDERED: CEFTRIAXONE 1 GM in DEXTROSE 5%-WATER - 50 ML IVPB SCH (20:30)
[2019-04-08] MEDS ORDERED: cefTRIAXone SODIUM 1 GM VIAL ONE (22:07)
[2019-04-08] MEDS ORDERED: DEXTROSE 5%-WATER - 50 ML IVPB ONE (22:07)
[2019-04-08] MEDS: INSULIN (LEVEMIR) 100 UNITS/ML UNITS SQ SCH (22:24)
[2019-04-08] MEDS: ATORVASTATIN CA 20 MG TABLET (FP) PO SCH (22:24)
[2019-04-09] MEDS: INSULIN SLIDING SCALE (NOVOLOG) 1 VIAL SQ SCH ×4 (06:35→21:14)
[2019-04-09] MEDS ORDERED: INSULIN SLIDING SCALE (NOVOLOG) 1 VIAL SQ ONE (06:59)
[2019-04-09] MEDS ORDERED: INSULIN (LEVEMIR) 100 UNITS/ML UNITS SQ ONE (06:59)
--- NOTE | 2019-04-09 08:24 | CONSULT ---
Consult - text type - Consultation Consultation Note: ORTHOPEDIC SURGERY CONSULTATION NOTE Department of Orthopedic Surgery HISTORY OF PRESENT ILLNESS Mr. Alicia is a 49 year old male who presents to [facility] with chest pain. The orthopedic service was consulted for left knee pain. The injury occurred after he fell down onto his bilateral knees. The patient notes pain over the anterior portion of his knee with erythema. Denies any other injuries. Denies numbness, tingling, fever/chills, or any other constitutional complaints. Denies tobacco use, drug use, alcohol abuse. The patient lives with family and uses no assistive devices at baseline. FAMILY HISTORY noncontributory REVIEW OF SYMPTOMS A twelve-point review of systems was performed and was negative except as noted in HPI. PHYSICAL EXAM Constitutional: Alert and oriented to person, place, and time. Appears well- developed and well-nourished. No acute distress, appropriate mood and affect. Right Upper Extremity: Skin warm, dry, and intact; no lesions, rashes or ulcers noted. Muscle mass equal and symmetric to contralateral side. No atrophy noted. No masses or effusions noted. No tenderness to palpation all joints; nontender throughout rest of extremity. Full passive and active ROM, free from pain. Joints stable with no pathologic laxity. M/R/U/MSK/AX motor intact; SILT distally; 2+ radial pulses; Cap refill brisk. Tone and reflexes normal. Left Upper Extremity: Skin warm, dry, and intact; no lesions, rashes or ulcers noted. Muscle mass equal and symmetric to contralateral side. No atrophy noted. No masses or effusions noted. No tenderness to palpation all joints; nontender throughout rest of extremity. Full passive and active ROM, free from pain. Joints stable with no pathologic laxity. M/R/U/MSK/AX motor intact; SILT distally; 2+ radial pulses; Cap refill brisk. Tone and reflexes normal. Right Lower Extremity: Skin warm, dry, and intact; no lesions, rashes or ulcers noted. Muscle mass equal and symmetric to contralateral side. No atrophy noted. No masses or effusions noted. No tenderness to palpation all joints; nontender throughout rest of extremity. No cords or calf tenderness No significant calf/ankle edema. Full passive and active ROM, free from pain. Joints stable with no pathologic laxity. EHL/TA/GS motor intact; SILT distally; 2+ DP pulses; Cap refill brisk. Tone and reflexes normal. Left Lower Extremity: Skin warm, dry, and intact; no lesions noted. There is erythema over the pre-patellar bursa, with tenderness to palpation. The erythema was outlined with a skin marker today. No sign of septic knee joint. Muscle mass equal and symmetric to contralateral side. No atrophy noted. No masses or effusions noted. Nontender throughout rest of extremity. No cords or calf tenderness; No significant calf/ankle edema. Full passive and active ROM of the knee joint, free from pain. Joints stable with no pathologic laxity. EHL/TA/GS motor intact ; SILT distally; 2+ DP pulses; Cap refill brisk. Tone and reflexes normal. Active Problems Problem Status Category Onset Chest pain Acute Medical Past Medical History Cardio/Vascular HTN Pulmonary Asthma Endocrine Diabetes Mellitus Past Surgical History Past Surgical History None Social History Smoking history Never smoked Aproximately how many 1 cigarettes per day Hx Alcohol Use No History of Substance Use None Allergies Allergy/AdvReac Type Severity Reaction Status Date / Time No Known Allergies Allergy Verified 04/07/19 09:13 Active Medications Generic Name Dose Route Start Last Admin Trade Name Freq PRN Reason Stop Dose Admin Acetaminophen 650 mg 04/07/19 22:11 04/08/19 06:09 Tylenol - PO 650 mg Q6H PRN Administration FEVER Aspirin 81 mg 04/08/19 10:00 04/08/19 09:33 Ecotrin - PO 81 mg DAILY [facility] Administration Atorvastatin Calcium 20 mg 04/07/19 22:00 04/08/19 22:24 Lipitor - PO 20 mg HS [facility] Administration Heparin Sodium (Porcine) 5,000 unit 04/07/19 22:00 04/08/19 22:22 Heparin - SQ 5,000 unit BID [facility] Administration Insulin Aspart 1 vial 04/07/19 22:00 04/09/19 06:35 Novolog Vial Sliding Scale - SQ 6 units ACHS [facility] Administration Protocol Insulin Detemir 55 units 04/07/19 22:00 04/08/19 22:24 Levemir Vial SQ 55 units HS [facility] Administration Losartan Potassium 25 mg 04/08/19 10:00 04/08/19 09:33 Cozaar - PO 25 mg DAILY [facility] Administration Metformin HCl 1,000 mg 04/08/19 07:00 04/09/19 06:35 Glucophage Xr - PO 1,000 mg BIDAC [facility] Administration Metoprolol Succinate 50 mg 04/08/19 13:00 04/08/19 14:16 Toprol Xl - PO 50 mg DAILY [facility] Administration Vital Signs (last) Temp Pulse Resp BP Pulse Ox 98.7 F 77 18 128/70 95 04/09/19 02:00 04/09/19 02:00 04/09/19 02:00 04/09/19 02:00 04/08/19 21:00 Intake and Output 04/07/19 04/08/19 04/09/19 23:59 23:59 23:59 Intake Total 2265 250 Output Total 1300 250 Balance 965 0 Intake: IVPB 50 Oral 2265 200 Output: Urine 1300 250 Void 1300 250 Other: Voiding Method Urinal Urinal # Unmeasured Voids Void 1 1 Bowel Movement Yes Yes # Bowel Movements 1 1 Weight 176 lb Height 5 ft 5 in Body Mass Index (BMI) 29.2 Weight Measurement Method Standing Scale Weight Measurement Method Est/Stated by Patient Laboratory 04/07/19 10:30 04/07/19 10:30 IMAGING I personally reviewed all radiographs, CT, and other imaging. They demonstrate mild to moderate left knee osteoarthritis characterized by joint space narrowing , and bony sclerosis, and osteophyte formation. ASSESSMENT AND PLAN Mr. Alicia is a 49 year old male presenting status post fall with a left knee pre-patellar bursitis and cellulitis. Patient has underlying mild to moderate left knee osteoarthritis. We have reviewed the imaging and clinical findings in detail, as well as their potential implications. After appropriate informed discussion, we agreed on the following plan: Curently unlikely to be septic knee joint based on physical exam, history of trauma, and negative lab work/vital signs. 1. Pain control 2. DVT ppx 3. WBAT / PT 4. Warm compresses to knee 5. Continue medical management / treatment (abx, heel precautions, cardiology mgt) 6. Will follow. All questions were answered. Thank you for involving our team in the care of this patient. Please call with any questoins. [phone].
[2019-04-09] MEDS: HEPARIN NA (PORCINE) 5,000 UNITS/ML 1ML VIAL SQ SCH ×2 (10:01→21:13)
[2019-04-09] MEDS: LOSARTAN POTASSIUM 25 MG TABLET PO SCH (10:01)
[2019-04-09] MEDS: ASPIRIN COATED 81 MG TABLET.EC PO SCH (10:01)
[2019-04-09] MEDS: ACETAMINOPHEN 325 MG TABLET (FP) PO PRN (10:02)
--- NOTE | 2019-04-09 12:18 | PN ---
Progress Note, Physician - Current Medication List Current Medications: Active Medications Acetaminophen (Tylenol -) 650 mg PO Q6H PRN PRN Reason: FEVER Last Admin: 04/09/19 10:02 Dose: 650 mg Aspirin (Ecotrin -) 81 mg PO DAILY [facility] Last Admin: 04/09/19 10:01 Dose: 81 mg Atorvastatin Calcium (Lipitor -) 20 mg PO HS [facility] Last Admin: 04/08/19 22:24 Dose: 20 mg Heparin Sodium (Porcine) (Heparin -) 5,000 unit SQ BID [facility] Last Admin: 04/09/19 10:01 Dose: 5,000 unit Insulin Aspart (Novolog Vial Sliding Scale -) 1 vial SQ [facility]; Protocol Last Admin: 04/09/19 12:13 Dose: 8 units Insulin Detemir (Levemir Vial) 55 units SQ [facility] Last Admin: 04/08/19 22:24 Dose: 55 units Losartan Potassium (Cozaar -) 25 mg PO DAILY [facility] Last Admin: 04/09/19 10:01 Dose: 25 mg Metformin HCl (Glucophage Xr -) 1,000 mg PO BIDAC [facility] Last Admin: 04/09/19 06:35 Dose: 1,000 mg Metoprolol Succinate (Toprol Xl -) 50 mg PO DAILY [facility] Last Admin: 04/09/19 10:01 Dose: 50 mg - Objective Vital Signs: Vital Signs Temperature 97.7 F 04/09/19 09:16 Pulse Rate 83 04/09/19 09:16 Respiratory Rate 18 04/09/19 09:16 Blood Pressure 125/77 04/09/19 09:16 O2 Sat by Pulse Oximetry (%) 95 04/08/19 21:00 Constitutional: Yes: No Distress HENT: Yes: Atraumatic Neck: Yes: Supple Cardiovascular: Yes: Regular Rate and Rhythm Respiratory: Yes: CTA Bilaterally Extremities: Yes: Other (left knee imroving) Edema: No Neurological: Yes: Alert, Oriented Labs: CBC, BMP 04/07/19 10:30 04/07/19 10:30 Problem List - Problems (1) Chest pain Assessment/Plan: resolved Code(s): R07.9 - CHEST PAIN, UNSPECIFIED Qualifiers: Chest pain type: unspecified Qualified Code(s): R07.9 - Chest pain, unspecified (2) Hypercholesterolemia Assessment/Plan: on meds Code(s): E78.00 - PURE HYPERCHOLESTEROLEMIA, UNSPECIFIED (3) Hypertension Assessment/Plan: on meds monitor Code(s): I10 - ESSENTIAL (PRIMARY) HYPERTENSION Qualifiers: Hypertension type: essential hypertension Qualified Code(s): I10 - Essential (primary) hypertension (4) Type 2 diabetes mellitus Assessment/Plan: insulin bgms Code(s): E11.9 - TYPE 2 DIABETES MELLITUS WITHOUT COMPLICATIONS Qualifiers: Diabetes mellitus terminal gauger supervisor insulin use: without terminal gauger supervisor use (5) Infection of knee Assessment/Plan: iv abx id/ortho consult improving Code(s): M00.9 - PYOGENIC ARTHRITIS, UNSPECIFIED
--- NOTE | 2019-04-09 13:02 | PN ---
Progress Note, Physician History of Present Illness: Chest pain resolved, denies dyspnea. Reports cath at [facility], but denies stent placement. - Current Medication List Current Medications: Active Medications Acetaminophen (Tylenol -) 650 mg PO Q6H PRN PRN Reason: FEVER Last Admin: 04/09/19 10:02 Dose: 650 mg Aspirin (Ecotrin -) 81 mg PO DAILY [facility] Last Admin: 04/09/19 10:01 Dose: 81 mg Atorvastatin Calcium (Lipitor -) 20 mg PO HS [facility] Last Admin: 04/08/19 22:24 Dose: 20 mg Heparin Sodium (Porcine) (Heparin -) 5,000 unit SQ BID [facility] Last Admin: 04/09/19 10:01 Dose: 5,000 unit Insulin Aspart (Novolog Vial Sliding Scale -) 1 vial SQ [facility]; Protocol Last Admin: 04/09/19 12:13 Dose: 8 units Insulin Detemir (Levemir Vial) 55 units SQ HS [facility] Last Admin: 04/08/19 22:24 Dose: 55 units Losartan Potassium (Cozaar -) 25 mg PO DAILY [facility] Last Admin: 04/09/19 10:01 Dose: 25 mg Metformin HCl (Glucophage Xr -) 1,000 mg PO BIDAC [facility] Last Admin: 04/09/19 06:35 Dose: 1,000 mg Metoprolol Succinate (Toprol Xl -) 50 mg PO DAILY [facility] Last Admin: 04/09/19 10:01 Dose: 50 mg - Objective Vital Signs: Vital Signs Temperature 97.7 F 04/09/19 09:16 Pulse Rate 83 04/09/19 09:16 Respiratory Rate 18 04/09/19 09:16 Blood Pressure 125/77 04/09/19 09:16 O2 Sat by Pulse Oximetry (%) 95 04/08/19 21:00 Constitutional: Yes: No Distress, Calm Neck: Yes: Supple Cardiovascular: Yes: Regular Rate and Rhythm Respiratory: Yes: Regular, CTA Bilaterally Gastrointestinal: Yes: Normal Bowel Sounds, Soft Edema: No Labs: CBC, BMP 04/07/19 10:30 04/07/19 10:30 - ....Imaging EKG: Report Reviewed (Tele: NSR) Problem List - Problems (1) Chest pain Code(s): R07.9 - CHEST PAIN, UNSPECIFIED Qualifiers: Chest pain type: unspecified Qualified Code(s): R07.9 - Chest pain, unspecified (2) Hypercholesterolemia Code(s): E78.00 - PURE HYPERCHOLESTEROLEMIA, UNSPECIFIED (3) Hypertension Code(s): I10 - ESSENTIAL (PRIMARY) HYPERTENSION Qualifiers: Hypertension type: essential hypertension Qualified Code(s): I10 - Essential (primary) hypertension (4) Type 2 diabetes mellitus Code(s): E11.9 - TYPE 2 DIABETES MELLITUS WITHOUT COMPLICATIONS Qualifiers: Diabetes mellitus terminal worker insulin use: without terminal worker use Assessment/Plan 04/08/2019 Echo: Normal LV size and fxn, tr MR, TR Nuclear MPI in July 2018 ([facility]) revealed large inferior and septal ischemia with LVEF 79% 1. Chest pain syndrome with underlying CAD and abnormal ECG 2. HTN 3. Hypercholesterolemia 4. Type 2 DM PLAN: 1. Troponins negative, ruled out for NM 2. Echocardiography results reviewed with patient 3. F/u cath report at [facility] 4. Increased Toprol XL to 50 mg QD, Losartan 25 mg QD, ASA 81 qd, Lipitor 20 qd 5. Consider Ranexa 500 mg BID if angina recurs 6. Obtain medical records from [facility] (Cath report)
--- NOTE | 2019-04-09 13:54 | CON.ID ---
Consult Consult Specialty:: infectious diseases Referred by:: dr callahan Reason for Consultation:: cellulitis of the left knee - History of Present Illness Chief Complaint: pain and tenderness of the left knee History of Present Illness: 49yo man with a PMH of CAD s/p stent (2019), MR, HTN, diabetes, and asthma was admitted for chest pain and also patient fell down down when pain begain patient evaluated and is being managed by cardiology patient has developed swelling and redness of the left knee ortho on case started on ceftriaxone - History Source History Provided By: Patient Limitations to Obtaining History: No Limitations - Past Medical History Cardio/Vascular: Yes: HTN Pulmonary: Yes: Asthma Endocrine: Yes: Diabetes Mellitus - Past Surgical History Past Surgical History: Yes: None - Alcohol/Substance Use Hx Alcohol Use: No History of Substance Use: reports: None - Smoking History Smoking history: Never smoked Have you smoked in the past 12 months: No Aproximately how many cigarettes per day: 1 Home Medications - Allergies Allergies/Adverse Reactions: Allergies Allergy/AdvReac Type Severity Reaction Status Date / Time No Known Allergies Allergy Verified 04/07/19 09:13 - Home Medications Home Medications: Ambulatory Orders Aspirin Coated [Ecotrin -] 81 mg PO DAILY #30 tablet.ec 07/23/18 Atorvastatin Ca [Lipitor] 20 mg PO HS #30 tablet 07/23/18 Losartan Potassium [Cozaar -] 25 mg PO DAILY #30 tablet 07/23/18 Insulin (Levemir) [Levemir Vial] 55 units SQ HS #2 units 07/25/18 Insulin Sliding Scale [Novolog Vial Sliding Scale -] 1 vial SQ ACHS #2 units metFORMIN HCL [Metformin ER Osmotic] 1,000 mg PO BID #60 tab.er.24 07/25/18 Metoprolol Succinate [Toprol XL -] 50 mg PO DAILY #30 tab.sr.24h 04/08/19 Review of Systems - Review of Systems Constitutional: reports: No Symptoms Eyes: reports: No Symptoms HENT: reports: No Symptoms Neck: reports: No Symptoms Cardiovascular: reports: Chest Pain Respiratory: reports: No Symptoms Gastrointestinal: reports: No Symptoms Genitourinary: reports: No Symptoms Musculoskeletal: reports: Joint Swelling (left knee) Integumentary: reports: Change in Color, Erythema Neurological: reports: No Symptoms Endocrine: reports: No Symptoms Hematology/Lymphatic: reports: No Symptoms Psychiatric: reports: No Symptoms Physical Exam Vital Signs: Vital Signs Temperature 97.7 F 04/09/19 09:16 Pulse Rate 83 04/09/19 09:16 Respiratory Rate 18 04/09/19 09:16 Blood Pressure 125/77 04/09/19 09:16 O2 Sat by Pulse Oximetry (%) 95 04/08/19 21:00 Constitutional: Yes: Well Nourished, Calm, Mild Distress Eyes: Yes: Conjunctiva Clear HENT: Yes: Atraumatic, Normocephalic Neck: Yes: Supple, Trachea Midline Cardiovascular: Yes: Regular Rate and Rhythm Respiratory: Yes: Regular, CTA Bilaterally Gastrointestinal: Yes: Normal Bowel Sounds, Soft Musculoskeletal: Yes: Joint Swelling (left knee) Extremities: Yes: Erythema (left knee) Neurological: Yes: Alert, Oriented Psychiatric: Yes: Alert, Oriented Labs: CBC, BMP 04/07/19 10:30 04/07/19 10:30 Imaging - Results Chest X-ray: Report Reviewed, Image Reviewed X-ray: Report Reviewed, Image Reviewed Assessment/Plan Problem List - Problems (1) Chest pain Code(s): R07.9 - CHEST PAIN, UNSPECIFIED Qualifiers: Chest pain type: unspecified Qualified Code(s): R07.9 - Chest pain, unspecified (2) Hypercholesterolemia Code(s): E78.00 - PURE HYPERCHOLESTEROLEMIA, UNSPECIFIED (3) Hypertension Code(s): I10 - ESSENTIAL (PRIMARY) HYPERTENSION Qualifiers: Hypertension type: essential hypertension Qualified Code(s): I10 - Essential (primary) hypertension (4) Type 2 diabetes mellitus Code(s): E11.9 - TYPE 2 DIABETES MELLITUS WITHOUT COMPLICATIONS Qualifiers: 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
[2019-04-09] MEDS: ATORVASTATIN CA 20 MG TABLET (FP) PO SCH (21:13)
[2019-04-09] MEDS: INSULIN (LEVEMIR) 100 UNITS/ML UNITS SQ SCH (21:13)
[2019-04-10] MEDS: INSULIN SLIDING SCALE (NOVOLOG) 1 VIAL SQ SCH ×3 (06:41→16:36)
[2019-04-10] MEDS: ACETAMINOPHEN 325 MG TABLET (FP) PO PRN ×2 (06:43→16:36)
[2019-04-10 07:00] LABS: BASO % 0.4 % (0-2.0); HEMATOCRIT 44.5 % (35.4-49); HEMOGLOBIN 14.9 GM/dL (11.7-16.9); LYMPH % 32.3 % (8-40); MCH 29.2 pg (25.7-33.7); MCHC 33.5 g/dl (32.0-35.9); MEAN CELL VOLUME 87.4 fl (80-96); MEAN PLT VOLUME 9.5 fl (7.5-11.1); MONO % 8.2 % (3.8-10.2); NEUT % 56.1 % (42.8-82.8); PLATELET COUNT 211 K/MM3 (134-434); RBC 5.09 M/mm3 (4.00-5.60); RDW 13.5 % (11.9-15.9); WHITE BLOOD COUNT 5.6 K/mm3 (4.0-10.0)
[2019-04-10 07:52] LABS: ALBUMIN 2.9 g/dl (3.4-5.0); BILIRUBIN,TOTAL 0.3 mg/dL (0.2-1); BLOOD UREA NITROGEN 17.4 mg/dL (7-18); CALCIUM 9.4 mg/dL (8.5-10.1); CREATININE 0.9 mg/dL (0.55-1.3); POTASSIUM 4.1 mmol/L (3.5-5.1); TOT PROT 7.2 g/dl (6.4-8.2)
--- NOTE | 2019-04-10 09:03 | PN ---
Progress Note (short form) - Note Progress Note: ORTHOPEDIC SURGERY PROGRESS NOTE Department of Orthopedic Surgery SUBJECTIVE No acute events overnight. No complaints currently. Denies chest pain, shortness of breath, or calf pain. No nausea or vomiting. Tolerating oral intake. Pain and erythema mildly improved. PHYSICAL EXAMINATION General: Alert, oriented, cooperative and no distress. Left Lower Extremity: Skin warm, dry, and intact; no lesions noted. There is erythema over the pre-patellar bursa, with tenderness to palpation - improved since yesterday. The erythema was outlined with a skin marker yesterday, and the erythema has improved. No sign of septic knee joint. Muscle mass equal and symmetric to contralateral side. No atrophy noted. No masses or effusions noted. Nontender throughout rest of extremity. No cords or calf tenderness; No significant calf/ankle edema. Full passive and active ROM of the knee joint, free from pain. Joints stable with no pathologic laxity. EHL/TA/GS motor intact ; SILT distally; 2+ DP pulses; Cap refill brisk. Tone and reflexes normal. DVT Exam: No evidence of DVT seen on physical exam; No cords or calf tenderness ; No significant calf/ankle edema. Intake & Output 04/08/19 04/09/19 04/10/19 23:59 23:59 23:59 Intake Total 2265 1690 Output Total 1300 350 Balance 965 1340 Intake: IVPB 50 Oral 2265 1640 Output: Urine 1300 350 Void 1300 350 Other: Voiding Method Urinal Urinal # Unmeasured Voids Void 1 1 Bowel Movement Yes Yes # Bowel Movements 1 1 Active Medications Generic Name Dose Route Start Last Admin Trade Name Freq PRN Reason Stop Dose Admin Acetaminophen 650 mg 04/07/19 22:11 04/10/19 06:43 Tylenol - PO 650 mg Q6H PRN Administration FEVER Aspirin 81 mg 04/08/19 10:00 04/09/19 10:01 Ecotrin - PO 81 mg DAILY [place] Administration Atorvastatin Calcium 20 mg 04/07/19 22:00 04/09/19 21:13 Lipitor - PO 20 mg HS [place] Administration Heparin Sodium (Porcine) 5,000 unit 04/07/19 22:00 04/09/19 21:13 Heparin - SQ 5,000 unit BID [place] Administration Insulin Aspart 1 vial 04/07/19 22:00 04/10/19 06:41 Novolog Vial Sliding Scale - SQ 4 units ACHS [place] Administration Protocol Insulin Detemir 55 units 04/07/19 22:00 04/09/19 21:13 Levemir Vial SQ 55 units HS [place] Administration Losartan Potassium 25 mg 04/08/19 10:00 04/09/19 10:01 Cozaar - PO 25 mg DAILY [place] Administration Metformin HCl 1,000 mg 04/08/19 07:00 04/10/19 06:40 Glucophage Xr - PO 1,000 mg BIDAC [place] Administration Metoprolol Succinate 50 mg 04/08/19 13:00 04/09/19 10:01 Toprol Xl - PO 50 mg DAILY [place] Administration Vital Signs (last) Temp Pulse Resp BP Pulse Ox 98.3 F 83 18 130/74 92 L 04/10/19 06:00 04/10/19 06:00 04/10/19 06:00 04/10/19 06:00 04/09/19 21:00 Laboratory 04/10/19 06:00 04/10/19 06:00 ASSESSMENT AND PLAN Mr. Alicia is a 49 year old male presenting status post fall with a left knee pre-patellar bursitis and cellulitis (improved). Patient has underlying mild to moderate left knee osteoarthritis. We have reviewed the imaging and clinical findings in detail, as well as their potential implications. After appropriate informed discussion, we agreed on the following plan: Septic knee joint unlikely based on physical exam, history of trauma, and negative lab work/vital signs. 1. Pain control 2. DVT ppx 3. WBAT / PT 4. Warm compresses to knee 5. Continue medical management / treatment (abx, heel precautions, cardiology mgt) 6. Appreciate ID consult 7. Will follow. All questions were answered. Thank you for involving our team in the care of this patient. Please call with any questions [phone].
[2019-04-10] MEDS: ASPIRIN COATED 81 MG TABLET.EC PO SCH (10:16)
[2019-04-10] MEDS: HEPARIN NA (PORCINE) 5,000 UNITS/ML 1ML VIAL SQ SCH (10:16)
[2019-04-10] MEDS: LOSARTAN POTASSIUM 25 MG TABLET PO SCH (10:16)
--- NOTE | 2019-04-10 11:35 | PN ---
Progress Note, Physician History of Present Illness: Chest pain resolved, denies dyspnea. Reviewed cath at [facility] 11/2018 showing non- obstructive CAD with elevated LVEDP c/w diastolic dyfunction. - Current Medication List Current Medications: Active Medications Acetaminophen (Tylenol -) 650 mg PO Q6H PRN PRN Reason: FEVER Last Admin: 04/10/19 06:43 Dose: 650 mg Aspirin (Ecotrin -) 81 mg PO DAILY [facility] Last Admin: 04/10/19 10:16 Dose: 81 mg Atorvastatin Calcium (Lipitor -) 20 mg PO HS [facility] Last Admin: 04/09/19 21:13 Dose: 20 mg Heparin Sodium (Porcine) (Heparin -) 5,000 unit SQ BID [facility] Last Admin: 04/10/19 10:16 Dose: 5,000 unit Insulin Aspart (Novolog Vial Sliding Scale -) 1 vial SQ [facility]; Protocol Last Admin: 04/10/19 06:41 Dose: 4 units Insulin Detemir (Levemir Vial) 55 units SQ HS [facility] Last Admin: 04/09/19 21:13 Dose: 55 units Losartan Potassium (Cozaar -) 25 mg PO DAILY [facility] Last Admin: 04/10/19 10:16 Dose: 25 mg Metformin HCl (Glucophage Xr -) 1,000 mg PO BIDAC [facility] Last Admin: 04/10/19 06:40 Dose: 1,000 mg Metoprolol Succinate (Toprol Xl -) 50 mg PO DAILY [facility] Last Admin: 04/10/19 10:16 Dose: 50 mg - Objective Vital Signs: Vital Signs Temperature 97.9 F 04/10/19 10:15 Pulse Rate 85 04/10/19 10:15 Respiratory Rate 16 04/10/19 10:15 Blood Pressure 127/73 04/10/19 10:15 O2 Sat by Pulse Oximetry (%) 92 L 04/09/19 21:00 Constitutional: Yes: No Distress, Calm Neck: Yes: Supple Cardiovascular: Yes: Regular Rate and Rhythm Respiratory: Yes: Regular, CTA Bilaterally Gastrointestinal: Yes: Normal Bowel Sounds, Soft Musculoskeletal: Yes: Other (Left knee erythema and tenderness improving) Extremities: Yes: Erythema Edema: No Labs: CBC, BMP 04/10/19 06:00 04/10/19 06:00 - ....Imaging EKG: Report Reviewed (Tele: NSR) Problem List - Problems (1) Chest pain Code(s): R07.9 - CHEST PAIN, UNSPECIFIED Qualifiers: Chest pain type: unspecified Qualified Code(s): R07.9 - Chest pain, unspecified (2) Hypercholesterolemia Code(s): E78.00 - PURE HYPERCHOLESTEROLEMIA, UNSPECIFIED (3) Hypertension Code(s): I10 - ESSENTIAL (PRIMARY) HYPERTENSION Qualifiers: Hypertension type: essential hypertension Qualified Code(s): I10 - Essential (primary) hypertension (4) Type 2 diabetes mellitus Code(s): E11.9 - TYPE 2 DIABETES MELLITUS WITHOUT COMPLICATIONS Qualifiers: 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 Chest pain syndrome with non-obstructive CAD 2. Diastolic dysfunction 3. HTN 4. Hypercholesterolemia 5. Type 2 DM 6. Left knee cellulitis PLAN: 1. Troponins negative, ruled out for [place] 2. Echocardiography results reviewed with patient 3. Reviewed cath report from [facility] with patient 4. Increased Toprol XL 50 mg QD, Losartan 25 mg QD, ASA 81 qd, Lipitor 20 qd 5. Consider Ranexa 500 mg BID or Norvasc if angina recurs 6. Abx course per ID 7. D/c telemetry, may be d/shereen home from CV-standpoint with f/u in office
--- NOTE | 2019-04-10 12:02 | PN ---
Progress Note, Physician - Current Medication List Current Medications: Active Medications Acetaminophen (Tylenol -) 650 mg PO Q6H PRN PRN Reason: FEVER Last Admin: 04/10/19 06:43 Dose: 650 mg Aspirin (Ecotrin -) 81 mg PO DAILY [facility] Last Admin: 04/10/19 10:16 Dose: 81 mg Atorvastatin Calcium (Lipitor -) 20 mg PO HS [facility] Last Admin: 04/09/19 21:13 Dose: 20 mg Heparin Sodium (Porcine) (Heparin -) 5,000 unit SQ BID [facility] Last Admin: 04/10/19 10:16 Dose: 5,000 unit Insulin Aspart (Novolog Vial Sliding Scale -) 1 vial SQ [facility]; Protocol Last Admin: 04/10/19 11:51 Dose: 6 units Insulin Detemir (Levemir Vial) 55 units SQ HS [facility] Last Admin: 04/09/19 21:13 Dose: 55 units Losartan Potassium (Cozaar -) 25 mg PO DAILY [facility] Last Admin: 04/10/19 10:16 Dose: 25 mg Metformin HCl (Glucophage Xr -) 1,000 mg PO BIDAC [facility] Last Admin: 04/10/19 06:40 Dose: 1,000 mg Metoprolol Succinate (Toprol Xl -) 50 mg PO DAILY [facility] Last Admin: 04/10/19 10:16 Dose: 50 mg - Objective Vital Signs: Vital Signs Temperature 97.9 F 04/10/19 10:15 Pulse Rate 85 04/10/19 10:15 Respiratory Rate 16 04/10/19 10:15 Blood Pressure 127/73 04/10/19 10:15 O2 Sat by Pulse Oximetry (%) 92 L 04/09/19 21:00 Labs: CBC, BMP 04/10/19 06:00 04/10/19 06:00 Problem List - Problems (1) Chest pain Code(s): R07.9 - CHEST PAIN, UNSPECIFIED Qualifiers: Chest pain type: unspecified Qualified Code(s): R07.9 - Chest pain, unspecified (2) Hypercholesterolemia Code(s): E78.00 - PURE HYPERCHOLESTEROLEMIA, UNSPECIFIED (3) Hypertension Code(s): I10 - ESSENTIAL (PRIMARY) HYPERTENSION Qualifiers: Hypertension type: essential hypertension Qualified Code(s): I10 - Essential (primary) hypertension (4) Type 2 diabetes mellitus Code(s): E11.9 - TYPE 2 DIABETES MELLITUS WITHOUT COMPLICATIONS Qualifiers: Diabetes mellitus assisted insulin use: without exterminator helper use (5) Infection of knee Code(s): M00.9 - PYOGENIC ARTHRITIS, UNSPECIFIED
--- NOTE | 2019-04-10 13:50 | PN ---
Progress Note, Physician - Current Medication List Current Medications: Active Medications Acetaminophen (Tylenol -) 650 mg PO Q6H PRN PRN Reason: FEVER Last Admin: 04/10/19 06:43 Dose: 650 mg Aspirin (Ecotrin -) 81 mg PO DAILY [facility] Last Admin: 04/10/19 10:16 Dose: 81 mg Atorvastatin Calcium (Lipitor -) 20 mg PO HS [facility] Last Admin: 04/09/19 21:13 Dose: 20 mg Heparin Sodium (Porcine) (Heparin -) 5,000 unit SQ BID [facility] Last Admin: 04/10/19 10:16 Dose: 5,000 unit Insulin Aspart (Novolog Vial Sliding Scale -) [address] [facility]; Protocol Last Admin: 04/10/19 11:51 Dose: 6 units Insulin Detemir (Levemir Vial) 55 units SQ HS [facility] Last Admin: 04/09/19 21:13 Dose: 55 units Losartan Potassium (Cozaar -) 25 mg PO DAILY [facility] Last Admin: 04/10/19 10:16 Dose: 25 mg Metformin HCl (Glucophage Xr -) 1,000 mg PO BIDAC [facility] Last Admin: 04/10/19 06:40 Dose: 1,000 mg Metoprolol Succinate (Toprol Xl -) 50 mg PO DAILY [facility] Last Admin: 04/10/19 10:16 Dose: 50 mg - Objective Vital Signs: Vital Signs Temperature 97.9 F 04/10/19 10:15 Pulse Rate 85 04/10/19 10:15 Respiratory Rate 16 04/10/19 10:15 Blood Pressure 127/73 04/10/19 10:15 O2 Sat by Pulse Oximetry (%) 94 L 04/10/19 10:00 Labs: CBC, BMP 04/10/19 06:00 04/10/19 06:00
--- NOTE | 2019-04-10 17:50 | DS ---
Physical Examination Vital Signs: Vital Signs Temperature 98.2 F 04/10/19 15:20 Pulse Rate 83 04/10/19 15:20 Respiratory Rate 18 04/10/19 15:20 Blood Pressure 116/76 04/10/19 15:20 O2 Sat by Pulse Oximetry (%) 94 L 04/10/19 10:00 Constitutional: Yes: No Distress HENT: Yes: Atraumatic Neck: Yes: Supple Cardiovascular: Yes: Regular Rate and Rhythm Respiratory: Yes: CTA Bilaterally Gastrointestinal: Yes: Normal Bowel Sounds Extremities: Yes: Other (L knee no erythema/swelling) Neurological: Yes: Alert, Oriented Labs: CBC, BMP 04/10/19 06:00 04/10/19 06:00 Discharge Summary Problems reviewed: Yes Reason For Visit: CHEST PAIN Current Active Problems Chest pain (Acute) Diastolic dysfunction without heart failure (Acute) Infection of knee (Acute) Nonobstructive atherosclerosis of coronary artery (Acute) Condition: Good - Instructions Diet, Activity, Other Instructions: see your pmd 1 week Referrals: Brian Masters MD [Staff Physician] - Anselmo Leyva MD [Staff Physician] - Disposition: HOME - Home Medications Comprehensive Discharge Medication List: Ambulatory Orders Aspirin Coated [Ecotrin -] 81 mg PO DAILY #30 tablet.ec 07/23/18 Atorvastatin Ca [Lipitor] 20 mg PO HS #30 tablet 07/23/18 Losartan Potassium [Cozaar -] 25 mg PO DAILY #30 tablet 07/23/18 Insulin (Levemir) [Levemir Vial] 55 units SQ HS #2 units 07/25/18 Insulin Sliding Scale [Novolog Vial Sliding Scale -] 1 vial SQ ACHS #2 units metFORMIN HCL [Metformin ER Osmotic] 1,000 mg PO BID #60 tab.er.24 07/25/18 Metoprolol Succinate [Toprol XL -] 50 mg PO DAILY #30 tab.sr.24h 04/08/19 Amox-Tr/K Cl [Augmentin 875-125mg Tablet -] 1 tab PO BID@0800,1730 #14 tablet ri home
[2019-04-10 18:15] VITALS: BP 117/72; PULSE 71; TEMP 97.6
[2019-04-10] MEDS ORDERED: AMOX TR/POT CLAV 875MG/125MG TABLETS (FP) PO ONE (18:30)
[2019-04-11] MEDS ORDERED: AMOX TR/POT CLAV 875MG/125MG TABLETS (FP) PO SCH (08:00)
== END 2019-04-10 18:59 | disposition home or self-care (01) | DRG 603 ==
LOC: JER 09:02 → JERBED 12:33 → OBSVTOIN 18:43 → J4S 21:07
PROVIDERS: ADMIT Internal Medicine; ATTEND Internal Medicine
DX: L03.116 Cellulitis of left lower limb (principal); I45.2 Bifascicular block; I25.10 Atherosclerotic heart disease of native coronary artery without angina pectoris; E11.9 Type 2 diabetes mellitus without complications; I10 Essential (primary) hypertension; E78.00 Pure hypercholesterolemia, unspecified; J45.909 Unspecified asthma, uncomplicated; R07.9 Chest pain, unspecified; M17.12 Unilateral primary osteoarthritis, left knee; Z79.4 Long term (current) use of insulin
CPT/HCPCS: 36415; 71046-TC-FY; 73030-TC-RT-FY; 73562-TC-LT-FY; 76870-TC; 80053; 81003; 82550; 82962; 84484; 85025; 87086; 87491; 87591; 93005; 93010; 93306-TC; 99283-25; 99285-25; G0378; J0131; J1644